=== PATIENT | female | born 1990 | race Hispanic/Latino ===

== ENCOUNTER 2018-09-21 19:38 | Emergency (ER) | payer BC ==
[2018-09-21 20:22] VITALS: BMI 33.5
[2018-09-21 20:39] LABS: SQUAMOUS EPITHIAL 1 /hpf (0-5); URINE BILIRUBIN NEGATIVE (NEGATIVE); URINE BLOOD NEGATIVE (NEGATIVE); URINE CLARITY CLEAR (Clear); URINE COLOR STRAW (YELLOW); URINE GLUCOSE (UA) 50 mg/dL (NEGATIVE); URINE LEUKOCYTE ESTERASE NEG Leu/uL (Negative); URINE PROTEIN NEGATIVE (NEGATIVE); URINE UROBILINOGEN 0.2-1.0 mg/dL (0.2-1.0)
[2018-09-22 03:17] VITALS: BP 133/62; PULSE 97; RESP 20; TEMP 98.5; O2SAT 99
== END 2018-09-21 21:10 | disposition home or self-care (01) ==
LOC: H.EROB2 19:38
DX: O26.93 Pregnancy related conditions, unspecified, third trimester (principal); R10.2 Pelvic and perineal pain; Z3A.32 32 weeks gestation of pregnancy